=== PATIENT | male | born 1970 | race Two or more races ===

== ENCOUNTER → 2018-06-03 | Outpatient (CLI) | payer OTHER ==
--- NOTE | 2018-06-03 13:17 | CONS ---
Assessment/Plan Assessment/Plan Hospital Course (Demo Recall) This is a 48-year-old female who comes in with 2 years of left knee pain. On examination she has no mechanical symptoms or instability. 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 She does have some component of patellofemoral syndrome as well. Plan: Authorization for left knee steroid injection Authorization for physical therapy Follow-up for left knee steroid injection Consultation Date/Type/Reason Admit Date/Time Date of Consultation: Jun 03, 2018 Reason for Consultation Left knee pain Date/Time of Note DATE: 06/03/18 TIME: 13:11 Hx of Present Illness Is a 48-year-old female with a chief complaint of left knee pain. The pain began approximately 2 years ago. The patients pain is in the medial lateral aspect of the left knee. Pain is not radiating to the lower leg. The pain is rated as a 9/10. Patient denies complaints of numbness or tingling. Denies mechanical symptoms the pain is exacerbated by climbing stairs and ambulation. Pain is not relieved by NSAID's. Patient has been taking ibuprofen on a p.r.n. basis as well as using ice. This does not seem to help Duration: 2 years Injury: No Walking tolerance: Half mile Limp: Yes Support: No Swelling: Rarely Crepitation: Yes Instability: No Stairs: Uses normally Physical Therapy: No Injections: No NSAIDs: Ibuprofen on rare occasion. Does not seem to help Prior surgery: No Back pain: No Hip pain: No Risk of AVN : No Patient denies fever, chills, shortness of breath, chest pain, nausea/vomiting, constipation, diarrhea, numbness, and tingling. Past Medical History Denies past medical history Past Surgical History Past Surgical Hx: no surgical history Family History Significant Family History: no pertinent family hx Social History Alcohol Use: none Smoking Status: Never smoker Drug Use: none Exam/Review of Systems Exam Vitals Weight: 160 Height: 5 foot 3 inches Temperature: 90.1 Heart Rate: 64 Blood Pressure: 134/81 Respiratory Rate: 12 Exam general: Alert, oriented x3. No Acute Distress. Heart: Regular rate and rhythm. Lungs: No respiratory distress. No accessory muscle use. Musculoskeletal: Left Knee This is a well developed female who is alert, oriented times three and in no apparent distress. Skin is intact over the left knee as well as the lower extremity with no abrasions, lacerations, or ulcerations. Observation of the patient's gait reveals an antalgic gait with No thrust. Frontal plane alignment is slight varus. There is pain on palpation of lateral greater than medial joint line. The patient demonstrates grinding anteriorly with ROM. Range of motion: 0 extension to approximately 130 degrees of flexion. Collateral ligament testing reveals no instability with varus or valgus stress at 0 and 30 degrees of flexion. Negative Liana's. Negative Alexis's and negative posterior drawer. Neurovascularly intact with 5/5 EHL/tibialis anterior/gastroc. Sensation intact to light touch in a sural, saphenous, deep peroneal, superficial peroneal, medial and lateral plantar nerve distribution. Palpable, symmetric dorsalis pedis and posterior tibial pulses in both lower extremities. Hip examination normal. Imaging Imaging The patient received a standard set of films today that were personally reviewed. Imaging included a standing bilateral knee AP, PA flexion, merchant views and a dedicated lateral of the affected knee: There is neutral alignment of the knee. There is no loss of joint space in any compartment(s). There is mild chondromalacia the patellofemoral joint. There is no osteophyte formation. There is no subchondral sclerosis. There are no subchondral cysts. Degenerative changes are most severe in the patellofemoral compartment(s) JERARDO OSWALD MD Jun 03, 2018 13:17
--- NOTE | 2018-06-03 17:17 | RADRPT ---
PROCEDURE: XR Knees. CLINICAL INDICATION: Bilateral knee pain. TECHNIQUE: Total of eight views. Weightbearing frontal, oblique, and lateral views of the both kne es. Patellar views of both knees. COMPARISON: No prior study is available for comparison. FINDINGS: There is no fracture or dislocation. There is a left knee joint effusion. There is no right knee joint effusion. Articular surfaces are intact. There is no lytic or blastic lesion. There is no radiopaque foreign body. IMPRESSION: 1. Left knee joint effusion. 2. Otherwise unremarkable images of both knees. RPTAT: QQ .Donnell Rodriguez MD, MD Date Time Electronically viewed and signed by .Donnell Rodriguez MD, on 06/03/2018 17:17 .R/
== END | disposition home or self-care (01) ==
LOC: HKI 10:28
PROVIDERS: ATTEND Orthopaedic Surgery Adult Reconstructive Orthopaedic Surgery
DX: M25.562 Pain in left knee (principal)
CPT/HCPCS: 73564; G0463

== ENCOUNTER → 2018-06-16 | Outpatient (CLI) | payer OTHER ==
--- NOTE | 2018-06-16 20:53 | CONS ---
Consult Date/Type/Reason Admit Date/Time Initial Consult Date Date/Time of Note DATE: 06/16/18 TIME: 20:50 Subjective 48-year-old female presents today for left knee steroid injection. States her symptoms are unchanged from last visit Objective Vitals Weight: 160 pounds Height: 5 foot 3 inches Temperature: 98.1 Heart Rate: 72 Blood Pressure: 134/6012 Respiratory Rate: 12 Exam General: Awake, alert, in no acute distress, pleasant and cooperative Heart: regular rhythm Lungs: breathing comfortably, no tachypnea or dyspnea MUSCULOSKELETAL: LLE: skin intact Sensation intact to light touch in a sural, saphenous, deep peroneal, superficial peroneal, medial and lateral plantar nerve distribution. Motor is intact, patient able to dorsiflex and plantarflex ankle and extend and flex great toe. Dorsalis Pedis pulse +2, Brisk capillary refill. Compartments are soft. Calves non-tender to palpation bilaterally. Assessment/Plan Hospital Course (Demo Recall) This is a 48-year-old female with chondromalacia of the left patellofemoral joint. She is beginning therapy at the end of the month. She return to clinic today for her steroid injection which was authorized. Plan: Left knee steroid injection Physical therapy Low impact activity Ice follow up PRN Assessment/Plan (Daily) Left knee steroid injection procedure: Risks and benefits of steroid injection reviewed with patient. The risks include infection, failure, pain, swelling, nerve/tendon/ligament damage. The patient verbalized understanding and verbal consent was obtained prior to procedure. The left knee was prepped in a sterile fashion with alcohol and betadine the site of injection was confirmed. Lateral approach was used. The skin and capsule was anesthetized with 3mL 1% lidocaine. The left knee was injected with 2mL 1% lidocaine, 2mL 0.25% bupivacaine, 40mg Depo-Medrol. Injection flowed freely. Good hemostasis was achieved and no complications noted. The patient tolerated the procedure well. Limit activity and ice for 24-48 hours JERARDO OSWALD MD Jun 16, 2018 20:53
== END | disposition home or self-care (01) ==
LOC: HKI 12:00
PROVIDERS: ATTEND Orthopaedic Surgery Adult Reconstructive Orthopaedic Surgery
DX: M25.562 Pain in left knee (principal); M17.12 Unilateral primary osteoarthritis, left knee
CPT/HCPCS: 20610; G0463

== ENCOUNTER → 2018-09-16 | Outpatient (CLI) | payer OTHER ==
--- NOTE | 2018-09-17 09:45 | RADRPT ---
PROCEDURE: XR Pelvis CLINICAL INDICATION: Pain TECHNIQUE: Single view of the pelvis were obtained. COMPARISON: None. FINDINGS: There is no acute fracture. Bilateral femoral heads are well seated within the respective acetabula. There are moderate degenerative changes at bilateral hip joints along with degenerative changes along the sacroiliac joints. Moderate degenerative changes are seen at the pubic symphysis. There are dege nerative changes in the lower lumbar spine. IMPRESSION: 1. Osseous demineralization with moderate degenerative changes of bilateral hip joints. RPTAT: AAEE Physician Sara Date Time Electronically viewed and signed by Physician Sara on 09/17/2018 09:44 RF/
--- NOTE | 2018-09-17 09:46 | RADRPT ---
PROCEDURE: XR knees CLINICAL INDICATION: Pain TECHNIQUE: Four views of the bilateral knees were obtained. COMPARISON: 06/03/2018 FINDINGS: There is no acute fracture dislocation. The bone mineralization is decreased. There are moderate to s evere degenerative changes of the knees most prominent along the medial knee compartments with signif icant joint space narrowing, subchondral sclerosis, and osteophyte formation. Small bilateral knee pastora int effusions are present. IMPRESSION: 1. Osseous demineralization with moderate to severe degenerative changes of the knees. RPTAT: AAEE Physician Sara Date Time Electronically viewed and signed by Physician Sara on 09/17/2018 09:46 RF/
--- NOTE | 2018-09-17 16:09 | CONS ---
Consult Date/Type/Reason Admit Date/Time Initial Consult Date Date/Time of Note DATE: 09/17/18 TIME: 15:59 Subjective 48-year-old female follows up 3 months status post left knee steroid injection. In the interim the patient was in [place]. 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 Now both of her knees are causing severe pain and she can barely walk. Her left knee continues to be more bothersome than her right knee. She is 10 out of 10 pain. Bearing weight and activities to increase the pain significantly. Denies numbness and tingling. She is not using a gait aid and does not want to use one. Her walking tolerance is very restricted as she can only walk around the house. Objective Exam This is a well developed female who is alert, oriented times three and in no apparent distress. Skin is intact over the left and right knee as well as the lower extremity with no abrasions, lacerations, or ulcerations. Observation of the patient's gait reveals an antalgic gait with Varus thrust worse on the left. Frontal plane alignment is varus worse on left than right. There is pain on palpation of lateral greater than medial joint line. The patient demonstrates grinding anteriorly with ROM. Range of motion: 10 extension to approximately 90 degrees of flexion. Collateral ligament testing reveals no instability with varus or valgus stress at 0 and 30 degrees of flexion. Negative Alexis's and negative posterior drawer. Neurovascularly intact with 5/5 EHL/tibialis anterior/gastroc. Sensation intact to light touch in a sural, saphenous, deep peroneal, superficial peroneal, medial and lateral plantar nerve distribution. Palpable, symmetric dorsalis pedis and posterior tibial pulses in both lower extremities. Hip examination normal. Results/Medications Imaging AP pelvis was obtained in clinic today: Demonstrates both hips are reduced. There is osteopenia. There is mild-moderate loss of joint space worse on the right than left. No fracture. The patient received a standard set of films today that were personally reviewed. Imaging included a standing bilateral knee AP, PA flexion, merchant views and a dedicated lateral of the affected knee: There is varus alignment of the left worse than right knee. There is complete loss of joint space medial compartment(s) and moderate to severe loss in the lateral and patellofemoral compartments. There is osteophyte formation. There is subchondral sclerosis. There are subchondral cysts. Degenerative changes are most severe in the medial compartment(s) left knee worse than right knee. These are significant changes from prior x-rays done in May which show only mild osteoarthritis Assessment/Plan Hospital Course (Demo Recall) 48-year-old female with left worse than right knee pain. She has had significant progression of her osteoarthritis in the last 4 months. Prior x- rays only show mild osteoarthritis. Given the patient's pain on examination I was concerned for possible hip pathology given that relatively recent knee x- rays cannot explain her pain. An AP pelvis was obtained which only showed mild arthritis. Her hip exam was also fairly normal. Therefore repeat weightbearing 4 views of bilateral knees were obtained to further evaluate the significant change in pain. New x-rays demonstrate that there is now end-stage ost eoarthritis of both knees involving the medial compartment. This is a very significant change in a very short period of time of 4 months. At this time given the patient's severe pain as well as rapid progression of arthritis I am recommending further discussion of a total knee arthroplasty. For the time being I am offering the patient bilateral steroid knee injections to try to give her some relief while we plan for surgery. Surgery will be at the earliest 3 months after the knee injections. Plan: Bilateral knee steroid injection Follow-up 2 to 3 weeks to discuss total knee arthroplasty Assessment/Plan (Daily) Bilateral knee steroid injection procedure: Risks and benefits of steroid injection reviewed with patient. The risks include infection, failure, pain, swelling, nerve/tendon/ligament damage. The patient verbalized understanding and verbal consent was obtained prior to procedure. Bilateral knees were prepped in a sterile fashion with alcohol and betadine the site of injection was confirmed. Anteromedial approach was used. The skin and capsule was anesthetized with 3mL 1% lidocaine. Bilateral knees were each injected with 2mL 1% lidocaine, 2mL 0.25% bupivacaine, 40mg Depo-Medrol. Injection flowed freely. Good hemostasis was achieved and no complications noted. The patient tolerated the procedure well. Limit activity and ice for 24- 48 hours JERARDO OSWALD MD Sep 17, 2018 16:09
== END | disposition home or self-care (01) ==
LOC: HKI 15:31
PROVIDERS: ATTEND Orthopaedic Surgery Adult Reconstructive Orthopaedic Surgery
DX: M17.11 Unilateral primary osteoarthritis, right knee (principal); M25.511 Pain in right shoulder; M25.512 Pain in left shoulder
CPT/HCPCS: 20610; 72170; 73564; G0463